=== PATIENT | male | born 2005 | race Caucasian/White ===

== ENCOUNTER 2023-11-14 17:47 | Emergency (ER) | payer OTHER, SELFPAY ==
[2023-11-14 17:55] VITALS: BP 143/83
[2023-11-14 18:38] LABS: % Basophils 0.4 % (0-2); % Eosinophils 3.9 % (0-6); % Immature Granulocytes 0.5 % (0-0.5); % Lymphocytes 14.6 % (20.5-51.1); % Monocytes 9.5 % (1.7-9.3); % Neutrophils 71.1 % (42.2-75.2); Absolute Eosinophils 0.4 10^3/uL (0-0.7); Absolute Immature Granulocytes 0.1 10^3/uL (0-0.05); Absolute Lymphocytes 1.6 10^3/uL (1.2-3.4); Absolute Neutrophils 7.7 10^3/uL (1.4-6.5); Hematocrit 40.9 % (39.0-52.0); Hemoglobin 14.3 g/dL (13.0-18.0); Mean Corpuscular Hgb 28.4 pg (27.0-31.0); Mean Corpuscular Volume 81.3 fL (80.0-94.0); Mean Platelet Volume 9.4 fL (7.4-10.4); Nucleated Red Blood Cells % 0 % (-); Platelet Count 332 10^3/uL (130-400); Red Blood Cell Count 5.03 10^6/uL (4.70-6.10); Red Cell Dist. Width 13.2 % (11.5-14.5); White Blood Cell Count 10.8 10^3/uL (4.8-10.8)
[2023-11-14 19:03] LABS: ALT (SGPT) 15 U/L (0-50); AST (SGOT) 30 U/L (17-59); Albumin 4.6 g/dl (3.5-5.0); Alkaline Phosphatase 76 U/L (38-126); Blood Urea Nitrogen 12 mg/dl (9-20); Calcium 9.6 mg/dl (8.4-10.2); Carbon Dioxide 27 mmol/L (22-30); Chloride 103 mmol/L (98-107); Glucose 87 mg/dl (70-99); Potassium 4.8 mmol/L (3.5-5.1); Sodium 137 mmol/L (135-145); Total Bilirubin 0.4 mg/dl (0.2-1.3); Total Protein 7.7 g/dl (6.3-8.2); eGFR > 60.00
[2023-11-14 19:18] LABS: COVID-19 Antigen Negative (Negative)
--- NOTE | 2023-11-14 20:10 | ED.GENMED ---
History of Present Illness
General
Chief Complaint: Cold/Flu/URI Symptoms
Source: patient
Exam Limitations: none
Time Seen by Provider: 11/14/23 19:53
Nursing documentation reviewed up to this point in time: agreed with
Travel History
Have you had any contact with someone who has COVID-19?: No
Do you have any symptoms of coronavirus? Fever > 100 degrees, chills, cough, shortness of breath, sore throat, loss of taste or smell, muscle aches, or headache?: Yes
Symptoms:: fever
History of Present Illness
History of Present Illness:
Patient presents to ED secondary to persistent cough, shortness of breath, decreased appetite, and intermittent fever over the past 9 days. Denies nausea, vomiting, or diarrhea. Denies headache. Denies sore throat. Denies ear pain. Denies rash.
Denies recent travel. Denies sick contact. Patient is a college student currently.
Past History
Social History
Tobacco: Non-smoker
Alcohol: None
Review of Systems
Review of Systems
Allergies reviewed?: Yes
All Other Systems: ROS reviewed and negative except as documented in HPI and ROS
Constitutional: Reports fever
EENT: Reports runny nose
Respiratory: Reports cough and trouble breathing
Cardiac: Reports no symptoms; Denies chest pain
ABD/GI: Reports no symptoms; Denies abdominal pain, nausea or vomiting
: Reports no symptoms
Musculoskeletal: Reports no symptoms
Skin: Reports no symptoms
Neurological: Reports no symptoms
Phy Exam
Physical Exam
Physical Exam:
Physical Exam
General: no apparent distress, not acutely ill. afebrile
Head: nc/at. eomi
Neck: supple. no meningeal signs.
Heart: s1/s2 regular rate and rhythm, no murmur. equal radial pulses.
Lungs: no acute respiratory distress. crackles bilaterally, L>R
Abdomen: normal bowel sounds. not tender.
Neuro: alert and oriented. no focal neurological deficits
Skin: no rash
Psychiatric: well kept. interactive and cooperative
Extremities: no edema. no calf tenderness.
Course
Orders/Labs/Results
Orders:
Orders
11/14/23 18:01
CXR2 [CR Chest - 2 Views ] Urgent
Comment:
Reason For Exam: cough /uri/intermit fever
11/14/23 18:05
CMP [Comprehensive Metabolic Panel] Urgent
COVID-19 Antigen Urgent
Source: Nasal Swab
Complete Blood Count/With Diff Urgent
INF RAPID [Influenza A+B Rapid Molecular] Urgent
KASSIE Source: Nasal Swab
Specimen Description:
11/14/23 20:10
Azithromycin [Zithromax] 500 mg PO NOW STA
Prednisone [Deltasone] 50 mg PO NOW STA
Abnormal Lab Results
11/14/23
18:05
Abs Immat Gran (auto) 0.1 H 10^3/uL
(0-0.05)
Absolute Neuts (auto) 7.7 H 10^3/uL
(1.4-6.5)
Absolute Monos (auto) 1.0 H 10^3/uL
(0.1-0.6)
Lymphocytes % 14.6 L %
(20.5-51.1)
Monocytes % 9.5 H %
(1.7-9.3)
11/14/23 18:05
11/14/23 18:05
Vital Signs
Initial and Last Documented VS:
Initial Vital Signs
Temp Pulse Resp BP Pulse Ox
99.2 F 80 16 143/83 96
11/14/23 17:55 11/14/23 17:55 11/14/23 17:55 11/14/23 17:55 11/14/23 17:55
Last Documented Vital Signs
Temp Pulse Resp BP Pulse Ox
99.2 F 80 16 143/83 96
11/14/23 17:55 11/14/23 17:55 11/14/23 17:55 11/14/23 17:55 11/14/23 17:55
MDM/Problems Addressed
MDM/Problems Addressed:
Chest x-ray: No acute findings. COVID and influenza negative.
History and exam consistent with likely acute bronchitis. As such, patient will be treated symptomatically, i.e. Z-Michael, prednisone, cough medication, albuterol inhaler. Advised PCP follow-up as an outpatient. Patient is otherwise afebrile,
hemodynamically stable, and without evidence of sig dehydration, at time of discharge to the care of his mother.
*Critical Care Note
Total Time (30-74mins, 75-104mins- exclusive of procedures): Not Applicable
ED Attending Note
-
Portions of this chart may have been created with voice recognition software.� Occasional wrong word or��sound alike� substitutions may have occurred due to the inherent limitations of voice recognition software.
Discharge Plan
Departure
Patient Disposition: Home (Routine Discharge)
Date of Disposition: 11/14/23
Time of Disposition: 20:13
Patient with high blood pressure during this ER visit?: Yes
Discharge Problem:
Acute bronchitis
Instructions: Acute Bronchitis, Adult (DC)
Prescriptions:
New
azithromycin [Zithromax] 250 mg tablet
250 mg PO DAILY 4 Days Qty: 4 0RF
benzonatate 100 mg capsule
100 mg PO TID PRN (Reason: Cough) Qty: 14 0RF
prednisone 50 mg tablet
50 mg PO DAILY Qty: 1 0RF
albuterol sulfate [ProAir HFA] 90 mcg/actuation Hfa Aerosol Inhaler
2 puff INHALATION Q4HPRN PRN (Reason: shortness of breath) Qty: 8.5 0RF
No Action
azithromycin 250 mg Tablet
250 mg PO DAILY
clindamycin HCl 300 mg capsule
300 mg PO Q6H Qty: 40 0RF
prednisone 10 mg Tablet
See Rx Instructions .ROUTE .COMPLEX Qty: 30 0RF
Rx Instructions:
Take By Mouth:
40 mg daily x3 days, 30 mg daily x3 days,
20 mg daily x3 days, 10 mg daily x3 days.
Referrals:
UNKNOWN - PT DOES,NOT KNOW [Family Provider] -
Activity Restrictions/Additional Instructions:
As discussed, please follow-up with your primary care physician with any further concerns. Your prescriptions have been sent electronically to [facility] pharmacy in [place].
Interventions
Interventions:
ED- Fall Risk Assessment Last Done: 11/14/23 20:24
*ED COVID-19 Vaccine History Last Done: 11/14/23 17:55
*Nursing Disposition Last Done: 11/14/23 20:24
ED- Pulmonary Assessment Last Done: 11/14/23 20:24
Discharge Date and Time
Discharge Date/Time: 11/14/23 20:25
[2023-11-14] MEDS: DELTASONE 50 MG PO (20:19)
[2023-11-14] MEDS: ZITHROMAX 500 MG PO (20:19)
== END 2023-11-14 20:25 | disposition home or self-care (01) ==
LOC: EMR 17:47
PROVIDERS: EMERGENCY PHYSICIAN Emergency Medicine
DX: J20.9 Acute bronchitis, unspecified (principal); R03.0 Elevated blood-pressure reading, without diagnosis of hypertension
CPT/HCPCS: 99284; 71046; 80053; 85025; 87502; 87811